=== PATIENT | female | born 1975 | race Caucasian/White ===

== ENCOUNTER 2017-07-31 17:08 | Emergency (ER) | payer MEDICAID ==
--- NOTE | 2017-07-31 17:52 | EDPHY ---
H & P Time Seen by Provider: 07/31/17 17:33 HPI/ROS: CHIEF COMPLAINT: "I am sick " HISTORY OF PRESENT ILLNESS: Patient is a 41-year-old female with a history of Crohn's disease and ankylosing spondylitis who presents emergency department multiple complaints. Patient states this morning she developed generalized weakness. She feels flushed and hot. She has developed a mild headache. She has pain extending from her neck down to her lumbar region. She has a history of ankylosing spondylitis and chronic back pain. This is slightly worse. The patient describes abdominal discomfort. At baseline she has chronic abdominal pain from her Crohn's disease. This seems typical. She has had increased frequency but no dysuria or hematuria. No flank pain. Patient has had no chest pain or shortness of breath. She has had no nausea or vomiting. No diarrhea. Patient denies sore throat. She has no neck stiffness or photophobia. REVIEW OF SYSTEMS: My complete review of systems is negative except as mentioned in the HPI. Past Medical/Surgical History: Includes ankylosing spondylitis, Crohn's disease, arthritis Social history: Patient does not smoke Smoking Status: Never smoked Constitutional: Initial Vital Signs Temperature (C) 38.5 C H 07/31/17 17:14 Heart Rate 108 H 07/31/17 17:14 Respiratory Rate 14 07/31/17 17:14 Blood Pressure 127/82 H 07/31/17 17:14 O2 Sat (%) 100 07/31/17 17:14 O2 Delivery Mode Room Air Allergies/Adverse Reactions: adalimumab [From Humira] Allergy (Verified 07/31/17 17:12) iron [From Venofer] Allergy (Verified 07/31/17 17:12) latex Allergy (Verified 07/31/17 17:12) mesalamine [From Apriso] Allergy (Verified 07/31/17 17:12) morphine Allergy (Verified 07/31/17 17:12) topiramate Allergy (Verified 07/31/17 17:12) CONTRAST Allergy (Uncoded 07/31/17 17:12) Home Medications: Medication Instructions Recorded Celebrex 07/31/17 Levothyroxine 07/31/17 Oseltamivir Phosphate [Tamiflu] 75 mg PO BID #10 capsule 07/31/17 Skelaxin 07/31/17 THYROID 07/31/17 busPIRone 07/31/17 Medical Decision Making - Diagnostics Imaging Results: Imaging Impressions Chest X-Ray 07/31/17 18:01 Impression: Normal chest. ED Course/Re-evaluation: In the emergency department I discussed the plan with the patient and answered all their questions. An IV was placed. Laboratory studies including lactic acid, blood cultures, and urine. CXR was ordered. Patient's CBC and chemistry were unremarkable. Lactic acid was 1.2. Urine was essentially negative. Patient had a positive flu screen. Chest x-ray: Please refer the dictated report. No acute disease. I discussed the results with the patient. On recheck she was doing well. She had no respiratory distress. She was given Tamiflu 75 mg orally. She was given a prescription. She is given warnings prior to leaving. She will return with worsening symptoms. Differential Diagnosis: My differential includes but is not limited to meningitis, encephalitis, bacteremia, sepsis, UTI, pyelonephritis, PNA, influenza, crohn's flair, abscess - Data Points Laboratory Results: Laboratory Results 07/31/17 18:00 07/31/17 18:00 07/31/17 07/31/17 07/31/17 18:40 18:30 18:00 WBC RBC Hgb Hct MCV MCH MCHC RDW Plt Count MPV Neut % (Auto) Lymph % (Auto) [place] % (Auto) Eos % (Auto) Baso % (Auto) Nucleat RBC Rel Count Absolute Neuts (auto) Absolute Lymphs (auto) Absolute Monos (auto) Absolute Eos (auto) Absolute Basos (auto) Absolute Nucleated RBC Immature Gran % Immature Gran # PT INR APTT VBG Lactic Acid Sodium 139 mEq/L mEq/L (134-144) Potassium 3.6 mEq/L mEq/L (3.5-5.2) Chloride 98 mEq/L mEq/L (97-110) Carbon Dioxide 25 mEq/l mEq/l (22-31) Anion Gap 16 mEq/L mEq/L (8-16) BUN 5 mg/dL L mg/dL (7-23) Creatinine 0.8 mg/dL mg/dL (0.6-1.0) Estimated GFR > 60 Glucose 86 mg/dL mg/dL (70-100) Calcium 9.8 mg/dL mg/dL (8.5-10.4) Total Bilirubin 0.6 mg/dL mg/dL (0.1-1.4) Conjugated Bilirubin 0.1 mg/dL mg/dL (0.0-0.5) Unconjugated Bilirubin 0.5 mg/dL mg/dL (0.0-1.1) AST 25 IU/L IU/L (14-46) ALT 32 IU/L IU/L (9-52) Alkaline Phosphatase 74 IU/L IU/L (38-126) Total Protein 7.5 g/dL g/dL (6.3-8.2) Albumin 4.5 g/dL g/dL (3.5-5.0) Urine Color PALE YELLOW Urine Appearance CLEAR Urine pH 6.0 (5.0-7.5) Ur Specific Reynolds 1.008 (1.002-1.030) Urine Protein NEGATIVE (NEGATIVE) Urine Ketones TRACE H (NEGATIVE) Urine Blood 1+ H (NEGATIVE) Urine Nitrate NEGATIVE (NEGATIVE) Urine Bilirubin NEGATIVE (NEGATIVE) Urine Urobilinogen NEGATIVE EU EU (0.2-1.0) Ur Leukocyte Esterase NEGATIVE (NEGATIVE) Urine RBC 1-3 /hpf /hpf (0-3) Urine WBC 1-3 /hpf /hpf (0-3) Ur Epithelial Cells TRACE /lpf /lpf (NONE-1+) Urine Bacteria TRACE /hpf H /hpf (NONE SEEN) Urine Mucus TRACE /lpf /lpf (NONE-1+) Urine Glucose NEGATIVE (NEGATIVE) Nasal Influenza A PCR FLU A DETECTED (NEGATIVE) Nasal Influenza B PCR NEGATIVE FOR FLU B (NEGATIVE) 07/31/17 07/31/17 07/31/17 18:00 18:00 18:00 WBC 7.22 10^3/uL 10^3/uL (3.80-9.50) RBC 4.77 10^6/uL 10^6/uL (4.18-5.33) Hgb 15.3 g/dL g/dL (12.6-16.3) Hct 42.5 % % (38.0-47.0) MCV 89.1 fL fL (81.5-99.8) MCH 32.1 pg pg (27.9-34.1) MCHC 36.0 g/dL g/dL (32.4-36.7) RDW 12.2 % % (11.5-15.2) Plt Count 257 10^3/uL 10^3/uL (150-400) MPV 10.0 fL fL (8.7-11.7) Neut % (Auto) 78.7 % H % (39.3-74.2) Lymph % (Auto) 8.3 % L % (15.0-45.0) [place] % (Auto) 11.8 % % (4.5-13.0) Eos % (Auto) 0.3 % L % (0.6-7.6) Baso % (Auto) 0.6 % % (0.3-1.7) Nucleat RBC Rel Count 0.0 % % (0.0-0.2) Absolute Neuts (auto) 5.69 10^3/uL 10^3/uL (1.70-6.50) Absolute Lymphs (auto) 0.60 10^3/uL L 10^3/uL (1.00-3.00) Absolute Monos (auto) 0.85 10^3/uL H 10^3/uL (0.30-0.80) Absolute Eos (auto) 0.02 10^3/uL L 10^3/uL (0.03-0.40) Absolute Basos (auto) 0.04 10^3/uL 10^3/uL (0.02-0.10) Absolute Nucleated RBC 0.00 10^3/uL 10^3/uL (0-0.01) Immature Gran % 0.3 % % (0.0-1.1) Immature Gran # 0.02 10^3/uL 10^3/uL (0.00-0.10) PT 13.3 SEC SEC (12.0-15.0) INR 1.02 (0.83-1.16) APTT 28.0 SEC SEC (23.0-38.0) VBG Lactic Acid 1.2 mmol/L mmol/L (0.7-2.1) Sodium Potassium Chloride Carbon Dioxide Anion Gap BUN Creatinine Estimated GFR Glucose Calcium Total Bilirubin Conjugated Bilirubin Unconjugated Bilirubin AST ALT Alkaline Phosphatase Total Protein Albumin Urine Color Urine Appearance Urine pH Ur Specific [place] Urine Protein Urine Ketones Urine Blood Urine Nitrate Urine Bilirubin Urine Urobilinogen Ur Leukocyte Esterase Urine RBC Urine WBC Ur Epithelial Cells Urine Bacteria Urine Mucus Urine Glucose Nasal Influenza A PCR Nasal Influenza B PCR Medications Given: Discontinued Medications Sodium Chloride (Ns) 1,000 mls @ 0 mls/hr IV EDNOW ONE; Wide Open PRN Reason: Protocol Stop: 07/31/17 18:05 Last Admin: 07/31/17 18:15 Dose: 1,000 mls Ketorolac Tromethamine (Toradol) 30 mg IVP EDNOW ONE Stop: 07/31/17 18:05 Last Admin: 07/31/17 18:15 Dose: 30 mg Departure - Departure Disposition: Home, Routine, Self-Care Clinical Impression: Influenza A Instructions: Influenza (ED) Additional Instructions: Return with increasing headache, neck pain, fever, shortness of breath or any other concerns. Referrals: Sun Perdomo MD [Primary Care Provider] - 2-3 days, call for appt. Prescriptions: Oseltamivir Phosphate [Tamiflu] 75 mg PO BID #10 capsule
[2017-07-31] MEDS ORDERED: KETOROLAC 30 MG/1 ML SDV IVP ONE (18:04)
[2017-07-31] MEDS ORDERED: NS 1,000 ML IV ONE (18:04)
[2017-07-31 18:27] LABS: INR 1.02 (0.83-1.16); PROTIME(PATIENT) 13.3 SEC (12.0-15.0)
[2017-07-31 18:28] LABS: % IMMATURE GRANULYOCYTES 0.3 % (0.0-1.1); ABSOLUTE IMMATURE GRANULOCYTES 0.02 10^3/uL (0.00-0.10); ADD DIFF? NO; ADD MORPH? NO; ADD SCAN? NO; ATYPICAL LYMPHOCYTE FLAG 10 (0-99); FRAGMENT RBC FLAG 0 (0-99); HEMATOCRIT 42.5 % (38.0-47.0); HEMOGLOBIN 15.3 g/dL (12.6-16.3); LEFT SHIFT FLG 0 (0-99); LIPEMIA HEMOLYSIS FLAG 90 (0-99); MEAN CELL HEMOGLOBIN 32.1 pg (27.9-34.1); MEAN CELL VOLUME 89.1 fL (81.5-99.8); PLATELET CLUMPS FLAG 0 (0-99); PLATELET COUNT 257 10^3/uL (150-400); RED BLOOD CELL COUNT 4.77 10^6/uL (4.18-5.33); RED CELL DISTRIBUTION WIDTH 12.2 % (11.5-15.2)
[2017-07-31 18:34] LABS: ALANINE AMINOTRANSFERASE 32 IU/L (9-52); ALBUMIN 4.5 g/dL (3.5-5.0); ALKALINE PHOSPHATASE 74 IU/L (38-126); ANION GAP 16 mEq/L (8-16); ASPARTATE AMINOTRANSFERASE 25 IU/L (14-46); BILIRUBIN,TOTAL 0.6 mg/dL (0.1-1.4); BILIRUBIN-CONJUGATED 0.1 mg/dL (0.0-0.5); BILIRUBIN-UNCONJUGATED 0.5 mg/dL (0.0-1.1); CALCIUM 9.8 mg/dL (8.5-10.4); CARBON DIOXIDE 25 mEq/l (22-31); CHLORIDE 98 mEq/L (97-110); CREATININE 0.8 mg/dL (0.6-1.0); GLOMERULAR FILTRATION RATE > 60; GLUCOSE 86 mg/dL (70-100); POTASSIUM 3.6 mEq/L (3.5-5.2); SODIUM 139 mEq/L (134-144); TOTAL PROTEIN 7.5 g/dL (6.3-8.2)
[2017-07-31 18:52] LABS: COLOR PALE YELLOW; LEUKOCYTE ESTERASE,URINE NEGATIVE (NEGATIVE); NITRITE,URINE NEGATIVE (NEGATIVE)
[2017-07-31 18:55] LABS: BACTERIA TRACE /hpf (NONE SEEN); MUCUS TRACE /lpf (NONE-1+)
[2017-07-31] MEDS ORDERED: OSELTAMIVIR PHOSPHATE 75 MG CAP PO ONE (19:34)
[2017-07-31 19:57] VITALS: O2SAT 96
[2017-07-31 19:58] VITALS: BP 123/79; PULSE 77; RESP 18; TEMP 98.8
== END 2017-07-31 19:58 | disposition home or self-care (01) ==
DX: J10.1 Influenza due to other identified influenza virus with other respiratory manifestations (principal); Z91.040 Latex allergy status
CPT/HCPCS: 96374; J1885